=== PATIENT | male | born 1950 | race Caucasian/White ===

== ENCOUNTER → 2018-01-12 | Outpatient (CLI) | payer MEDICARE ==
[~2018-01-12] VITALS: Ht 157.5 cm; Wt 72.0 kg
[~2018-01-12] MED LIST: ALPR0.255 PO; LISI-662 PO; METO-558 PO; RIVA20TA PO; SPIR25 PO
[2018-01-12 14:37] VITALS: BP 117/67
== END | disposition home or self-care (01) ==
LOC: SRCNTR 13:53
PROVIDERS: ATTEND Internal Medicine Clinical Cardiac Electrophysiology
DX: Z45.02 Encounter for adjustment and management of automatic implantable cardiac defibrillator (principal); I11.0 Hypertensive heart disease with heart failure; I50.9 Heart failure, unspecified; I25.10 Atherosclerotic heart disease of native coronary artery without angina pectoris; I48.0 Paroxysmal atrial fibrillation
CPT/HCPCS: G0463

== ENCOUNTER → 2019-01-11 | Outpatient (CLI) | payer MEDICARE, OTHER | END | disposition home or self-care (01) | LOC: SRCNTR 10:50 | PROVIDERS: ATTEND Internal Medicine Clinical Cardiac Electrophysiology | DX: Z45.018 Encounter for adjustment and management of other part of cardiac pacemaker (principal) | CPT/HCPCS: G0463 ==

== ENCOUNTER → 2020-07-17 | Outpatient (CLI) | payer MEDICARE, OTHER ==
[~2020-07-17] VITALS: Ht 157.5 cm; Wt 74.0 kg
[~2020-07-17] MED LIST changes: +PRAV40TA4 PO
[2020-07-17 09:59] VITALS: BP 123/70
== END | disposition home or self-care (01) ==
LOC: SRCNTR 09:55
PROVIDERS: ATTEND Internal Medicine Clinical Cardiac Electrophysiology
DX: Z45.02 Encounter for adjustment and management of automatic implantable cardiac defibrillator (principal); I11.0 Hypertensive heart disease with heart failure; I50.9 Heart failure, unspecified; I25.10 Atherosclerotic heart disease of native coronary artery without angina pectoris; Z79.899 Other long term (current) drug therapy
CPT/HCPCS: 93289; G0463

== ENCOUNTER → 2021-07-16 | Outpatient (CLI) | payer MEDICARE, OTHER ==
[~2021-07-16] VITALS: Ht 157.5 cm; Wt 74.0 kg
[~2021-07-16] MED LIST changes: -LISI-662 PO; +LISI-894 PO; +SPIR-37 PO; -SPIR25 PO
[2021-07-16 10:42] VITALS: BP 124/74
== END | disposition home or self-care (01) ==
LOC: SRCNTR 09:41
PROVIDERS: ATTEND Internal Medicine Clinical Cardiac Electrophysiology
DX: Z45.02 Encounter for adjustment and management of automatic implantable cardiac defibrillator (principal); I11.0 Hypertensive heart disease with heart failure; I50.9 Heart failure, unspecified; I25.10 Atherosclerotic heart disease of native coronary artery without angina pectoris; I48.0 Paroxysmal atrial fibrillation
CPT/HCPCS: 93289; G0463